=== PATIENT | female | born 1950 | race African-American/Black ===

== ENCOUNTER 2018-09-01 08:25 | Day surgery (SDC) | payer OTHER ==
[2018-08-31 14:43] VITALS: BMI 36.9
[2018-09-01 10:25] VITALS: TEMP 98.4
[2018-09-01 11:47] VITALS: BP 147/76; PULSE 63
--- NOTE | 2018-09-02 11:06 | PATH ---
Surgical Pathology Report Patient Name: PIERRE KAPADIA [facility]. Rec. #: [id number] /Age/Gender: 1950 (Age: 67) / F Account: [id number] Location: U-ENDOSCOPY Taken: 09/01/2018 Received: 09/01/2018 Reported: 09/02/2018 Physicians: Blake Huang M.D. Specimen(s) Received A: DUODENUM 2ND PORTION AND BULB B: ANTRUM AND BODY C: RECTAL POLYP D: DESCENDING COLON POLYP E: CECUM Clinical History Polyp surveillance, family history of gastric cancer Postoperative diagnosis: Atrophic gastritis, diverticulosis, colon polyp Final Diagnosis A. DUODENUM, SECOND PORTION AND BULB, BIOPSY: DUODENAL MUCOSA WITH NO PATHOLOGIC CHANGES. NO HISTOLOGIC EVIDENCE OF GLUTEN SENSITIVE ENTEROPATHY (CELIAC SPRUE) IDENTIFIED. B. STOMACH, ANTRUM AND BODY, BIOPSY: MODERATE TO SEVERE CHRONIC ACTIVE GASTRITIS. IMMUNOSTAIN FOR H. PYLORI IS POSITIVE (MODERATE TO MANY ORGANISMS) C. COLON, RECTUM, BIOPSY: COLONIC MUCOSA WITH FOCAL HYPERPLASTIC CHANGES. D. COLON, DESCENDING, BIOPSY: TUBULAR ADENOMA E. COLON, CECUM, BIOPSY: TUBULAR ADENOMA. Electronically Signed Sourav Crespo M.D. Gross Description A. Received in formalin, labeled "biopsy duodenum second portion and bulb" are 3 lawson, irregular portions of soft tissue ranging from 0.4-0.6 cm. in greatest dimension. The specimens are submitted in toto in one cassette. B. Received in formalin, labeled "biopsy antrum and body" are 2 lawson, irregular portions of soft tissue measuring 0.3 and 0.5 cm. in greatest dimension. The specimens are submitted in toto in one cassette. C. Received in formalin, labeled "polyp rectum" is a lawson, irregular portion of soft tissue measuring 0.3 cm. in greatest dimension. The specimen is submitted in toto in one cassette. D. Received in formalin, labeled "polyp descending colon" are 3 lawson, irregular portions of soft tissue ranging from 0.2-0.3 cm. in greatest dimension. The specimens are submitted in toto in one cassette. E. Received in formalin, labeled "polyp cecum" are 2 lawson, irregular portions of soft tissue measuring 0.2 and 0.4 cm. in greatest dimension. The specimens are submitted in toto in one cassette. DL/09/01/2018 [facility]/09/01/2018
== END 2018-09-01 11:38 | disposition home or self-care (01) ==
LOC: JASU-ENDO 08:25
PROVIDERS: ATTEND Internal Medicine Gastroenterology
PROC: 0DBP8ZX Excision of Rectum, Via Natural or Artificial Opening Endoscopic, Diagnostic (ICD-10-PCS; 2018-09-01)
PROC: 0DBM8ZX Excision of Descending Colon, Via Natural or Artificial Opening Endoscopic, Diagnostic (ICD-10-PCS; 2018-09-01)
PROC: 0DB68ZX Excision of Stomach, Via Natural or Artificial Opening Endoscopic, Diagnostic (ICD-10-PCS; 2018-09-01)
PROC: 0DBH8ZX Excision of Cecum, Via Natural or Artificial Opening Endoscopic, Diagnostic (ICD-10-PCS; principal; 2018-09-01 09:30)
DX: Z12.11 Encounter for screening for malignant neoplasm of colon (principal); Z86.010 Personal history of colon polyps; K62.1 Rectal polyp; D12.0 Benign neoplasm of cecum; D12.4 Benign neoplasm of descending colon; K57.30 Diverticulosis of large intestine without perforation or abscess without bleeding; K64.8 Other hemorrhoids; D17.5 Benign lipomatous neoplasm of intra-abdominal organs; K29.50 Unspecified chronic gastritis without bleeding; Z80.0 Family history of malignant neoplasm of digestive organs
CPT/HCPCS: 88305-TC; 88342-TC

== ENCOUNTER 2023-05-17 18:01 | Emergency (ER) | payer OTHER ==
[2023-05-17 18:08] VITALS: BP 174/72; PULSE 74; RESP 18; BMI 35.5
[2023-05-17] MEDS ORDERED: LIDOCAINE 4% PATCH TP ONE ×2 (19:37→19:45)
[2023-05-17 20:16] LABS: BASO % 0.9 % (0-2.0); EOS % 2.8 % (0-4.5); HEMATOCRIT 39.5 % (32.4-45.2); HEMOGLOBIN 13.2 GM/dL (10.7-15.3); LYMPH % 30.2 % (8-40); MCH 30.9 pg (25.7-33.7); MCHC 33.5 g/dl (32.0-36.0); MEAN CELL VOLUME 92.2 fl (80-96); MEAN PLT VOLUME 8.3 fl (7.5-11.1); MONO % 7.8 % (3.8-10.2); NEUT % 58.3 % (42.8-82.8); PLATELET COUNT 269 10^3/uL (134-434); RBC 4.29 M/mm3 (3.60-5.2); RDW 13.5 % (11.6-15.6); WHITE BLOOD COUNT 6.5 K/mm3 (4.0-10.0)
[2023-05-17 20:33] LABS: POTASSIUM 4.2 mmol/L (3.5-5.1)
[2023-05-17 20:35] LABS: BLOOD UREA NITROGEN 14.3 mg/dL (7-18); CALCIUM 10.1 mg/dL (8.5-10.1)
[2023-05-17 20:40] VITALS: TEMP 98
[2023-05-17 20:40] LABS: BILIRUBIN,TOTAL 0.7 mg/dL (0.2-1); TOT PROT 7.5 g/dl (6.4-8.2)
[2023-05-17 20:59] LABS: ACTIVATED PTT 30.9 SECONDS (25.2-36.5)
[2023-05-17 21:00] LABS: INR 0.98 (0.83-1.09); PROTHROMBIN TIME (PATIENT) 11.4 SEC (9.7-13.0)
== END 2023-05-17 22:51 | disposition home or self-care (01) ==
LOC: JER 18:01
DX: M25.512 Pain in left shoulder (principal); F41.9 Anxiety disorder, unspecified; Y04.2XXA Assault by strike against or bumped into by another person, initial encounter
CPT/HCPCS: 36415; 73030-TC-LT-FY; 80053; 84484; 85025; 85610; 85730; 93005; 93010; 99285-25

== ENCOUNTER 2023-05-23 10:17 | Emergency (ER) | payer OTHER ==
[2023-05-23 10:25] VITALS: BP 123/63; PULSE 84; RESP 18; TEMP 99; BMI 35.5
[2023-05-23] MEDS ORDERED: KETOROLAC TROMETHAMINE 30 MG/1 ML VIAL IM ONE (11:17)
[2023-05-23] MEDS ORDERED: KETOROLAC TROMETHAMINE 30 MG/1 ML VIAL ONE (11:46)
== END 2023-05-23 15:58 | disposition home or self-care (01) ==
LOC: JERFT 10:17
PROC: 3E0233Z Introduction of Anti-inflammatory into Muscle, Percutaneous Approach (ICD-10-PCS; principal; 2023-05-23)
DX: S43.52XA Sprain of left acromioclavicular joint, initial encounter (principal); X50.9XXA Other and unspecified overexertion or strenuous movements or postures, initial encounter; Y92.9 Unspecified place or not applicable
CPT/HCPCS: 73030-TC-LT-FY; 73200-TC-RT; 99284-25